=== PATIENT | female | born 1960 | race Caucasian/White ===

== ENCOUNTER 2018-03-18 08:58 | Emergency (ER) | payer MEDICAID ==
[~2018-03-18] VITALS: Ht 165.1 cm; Wt 77.6 kg
[~2018-03-18 08:58] MED LIST: ASPI81CT89 PO; CALER180 PO; FURO-572 PO; HYDR1TAB PO
[2018-03-18 09:05] VITALS: BP 130/90
[2018-03-18 10:50] VITALS: BP 130/90
== END 2018-03-18 10:50 | disposition home or self-care (01) ==
LOC: MED 08:58
DX: H10.10 Acute atopic conjunctivitis, unspecified eye (principal); J45.909 Unspecified asthma, uncomplicated; I10 Essential (primary) hypertension; Z88.5 Allergy status to narcotic agent; Z88.1 Allergy status to other antibiotic agents; Z79.82 Long term (current) use of aspirin; Z79.899 Other long term (current) drug therapy
CPT/HCPCS: 99282